=== PATIENT | female | born 1935 | race Two or more races ===

== ENCOUNTER 2025-01-07 17:11 | Emergency (ER) | payer OTHER ==
[~2025-01-07] VITALS: Ht 144.8 cm; Wt 63.5 kg
[2025-01-07 19:57] LABS: BASO % 0.6 % (0.1-1.2); EOS # 0.03 (0.04-0.54); EOS % 0.3 % (0.7-7.0); LYMPH # 2.46 (1.18-3.74); LYMPH % 25.6 % (19.3-53.1); MEAN PLATELET VOLUME 9.60 fl (9.4-12.4); MONO # 0.75 (0.24-0.82); MONO % 7.8 % (4.7-12.5); NEUT # 6.27 (1.56-6.13); NEUT % 65.2 % (34.0-71.1); RED CELL DISTRIBUTION WIDTH 15.4 % (11.6-14.4)
[2025-01-07 21:02] LABS: ALT/SGPT 38.0 U/L (12-78); AST/SGOT 90.0 U/L (15-37); BILIRUBIN TOTAL 0.57 mg/dL (0.3-1.2); BUN CREA RATIO 17.0 (7.0-25.0); CREATININE SERUM 1.99 mg/dL (0.55-1.02); GFR 23.6; GLOBULINA 5.0 G/DL (2.4-3.5); GLUCOSE FASTING 106.0 mg/dL (65-100); OSMOLALITY SERUM 289.0 MOSM/KG (275-295)
[2025-01-07 21:12] LABS: TSH 8.79 uIU/mL (0.358-3.74)
== END 2025-01-07 23:30 | disposition home or self-care (01) ==
LOC: ER 17:11
DX: R45.0 Nervousness (principal); I10 Essential (primary) hypertension; F03.90 Unspecified dementia, unspecified severity, without behavioral disturbance, psychotic disturbance, mood disturbance, and anxiety

== ENCOUNTER 2025-01-19 15:52 | Inpatient (IN) | payer OTHER ==
[~2025-01-19] VITALS: Ht 144.8 cm; Wt 73.9 kg
[2025-01-19] MEDS ORDERED: SYNTHROID75 MCG PO (16:13)
--- NOTE | 2025-01-19 16:13 | NUR ---
PACIENTE REFIERE ARDOR AL ORINAR Y CON MAL OLOR. PACIENTE CON RESULTADO DE CULTIVO DE ORINA. REFERIDO POR POLO ONCOLOGO (ROBERTO ZAMORA)
[2025-01-19] MEDS ORDERED: 0.9 % SODIUM CHLORIDE 1,000 ML IV ONE (17:00)
[2025-01-19] MEDS ORDERED: levoFLOXacin IN DEXTROSE 5 % 500MG/100ML PIGGYBAG IV ONE ×2 (17:00→18:19)
--- NOTE | 2025-01-19 18:04 | NUR ---
RN LLAMAS ORIENTA A PTE SOBRE TX MEDICO Y LA MISMA REFIERE ENTENDER Y ACEPTAR. RN CANALIZA Y COLECTA MUESTRAS DE LAB, ADMINISTRA MED GIULIA ORDEN MEDICA. PEND XRAY A REALIZAR
[2025-01-19 18:25] LABS: BASO % 0.3 % (0.1-1.2); EOS # 0.02 (0.04-0.54); EOS % 0.1 % (0.7-7.0); LYMPH # 2.13 (1.18-3.74); LYMPH % 13.9 % (19.3-53.1); MEAN PLATELET VOLUME 9.00 fl (9.4-12.4); MONO # 1.63 (0.24-0.82); MONO % 10.6 % (4.7-12.5); NEUT # 11.39 (1.56-6.13); NEUT % 74.4 % (34.0-71.1); RED CELL DISTRIBUTION WIDTH 15.3 % (11.6-14.4)
[2025-01-19 18:50] LABS: ALT/SGPT 26.0 U/L (12-78); AST/SGOT 131.0 U/L (15-37); BILIRUBIN TOTAL 1.11 mg/dL (0.3-1.2); BUN CREA RATIO 19.0 (7.0-25.0); CREATININE SERUM 1.44 mg/dL (0.55-1.02); GFR 34.27; GLOBULINA 4.5 G/DL (2.4-3.5); GLUCOSE FASTING 120.0 mg/dL (65-100); OSMOLALITY SERUM 278.0 MOSM/KG (275-295)
[2025-01-19 20:41] LABS: URINE APPEARANCE Clear; URINE BILIRRUBIN Negative (NEGATIVE); URINE BLOOD Negative; URINE COLOR Dark Yellow; URINE GLUCOSE Negative (NEGATIVE); URINE KETONE Trace (NEGATIVE); URINE LEUKOCYTE Small; URINE NITRATE Positive; URINE UROBILINOGEN 1.0 E.U./dl
[2025-01-19 20:45] LABS: URINE BACTERIA 3567.5 uL (0.0-1933); URINE CAST 6.59 uL (0.0-1.40); URINE EPITHELIAL CELLS 10.4 uL (0.0-38.8); URINE RBC 7.4 uL (0.0-20.8); URINE WBC 81.8 uL (0.0-23.2)
[2025-01-19 21:02] LABS: URINE PROTEIN 100 (NEGATIVE)
[2025-01-19] MEDS ORDERED: LISINOPRIL 5 MG TABLET PO SCH (22:40)
[2025-01-19] MEDS ORDERED: DONEPEZIL HCL 5 MG TABLET PO SCH (22:40)
[2025-01-19] MEDS ORDERED: ENOXAPARIN SODIUM 40 MG/0.4 ML SYRINGE SUBCUTANEO SCH (22:55)
[2025-01-19] MEDS ORDERED: levoFLOXacin IN DEXTROSE 5 % 150 ML IV SCH (23:00)
[2025-01-19] MEDS ORDERED: ACETAMINOPHEN 325 MG TABLET PO PRN (23:00)
[2025-01-19] MEDS ORDERED: 0.9 % SODIUM CHLORIDE 1,000 ML IV SCH (23:00)
[2025-01-19 23:52] VITALS: BP 130/80
[2025-01-19] MEDS ORDERED: ENOXAPARIN SODIUM 40 MG/0.4 ML SYRINGE SUBCUTANEO ONE (23:53)
[2025-01-20 04:31] LABS: BASO % 0.2 % (0.1-1.2); EOS # 0.00 (0.04-0.54); EOS % 0.0 % (0.7-7.0); LYMPH # 1.65 (1.18-3.74); LYMPH % 10.6 % (19.3-53.1); MEAN PLATELET VOLUME 9.50 fl (9.4-12.4); MONO # 1.20 (0.24-0.82); MONO % 7.7 % (4.7-12.5); NEUT # 12.59 (1.56-6.13); NEUT % 81.1 % (34.0-71.1); RED CELL DISTRIBUTION WIDTH 14.8 % (11.6-14.4)
[2025-01-20 04:51] LABS: INR 1.46
[2025-01-20] MEDS ORDERED: LEVOTHYROXINE SODIUM 75 MCG TABLET PO SCH (06:00)
[2025-01-20 06:03] LABS: ALT/SGPT 27.0 U/L (12-78); AST/SGOT 138.0 U/L (15-37); BILIRUBIN TOTAL 1.65 mg/dL (0.3-1.2); BUN CREA RATIO 22.0 (7.0-25.0); CREATININE SERUM 1.03 mg/dL (0.55-1.02); GFR 50.45; GLOBULINA 4.2 G/DL (2.4-3.5); GLUCOSE FASTING 66.0 mg/dL (65-100); OSMOLALITY SERUM 274.0 MOSM/KG (275-295)
[2025-01-20 06:13] VITALS: BP 114/71; O2SAT 98
[2025-01-20 09:57] VITALS: BP 126/77; O2SAT 98
[2025-01-20] MEDS ORDERED: AMINO ACIDS/PROTEIN HYDROLYS 30 ML BLIST.PACK PO SCH (17:00)
[2025-01-20] MEDS ORDERED: VITAMIN B COMPLEX/LYSINE 15 ML BLIST.PACK PO SCH (17:00)
[2025-01-20] MEDS ORDERED: LACTOBACILLUS ACIDOPHILUS 1 CAP CAP PO SCH (17:00)
[2025-01-20 18:15] VITALS: BP 115/73
[2025-01-21 02:04] VITALS: BP 103/63; O2SAT 97
[2025-01-21 09:34] VITALS: BP 126/71
[2025-01-21 18:10] VITALS: BP 126/73; O2SAT 98
[2025-01-22 01:54] VITALS: BP 115/67; O2SAT 97
[2025-01-22 08:00] VITALS: BP 117/74
[2025-01-22 18:36] VITALS: BP 131/75; O2SAT 97
[2025-01-23 02:01] VITALS: BP 138/76; O2SAT 98
[2025-01-23 08:00] VITALS: BP 137/83
[2025-01-23 15:12] LABS: BASO % 0.4 % (0.1-1.2); EOS # 0.03 (0.04-0.54); EOS % 0.3 % (0.7-7.0); LYMPH # 1.86 (1.18-3.74); LYMPH % 18.1 % (19.3-53.1); MEAN PLATELET VOLUME 9.80 fl (9.4-12.4); MONO # 1.02 (0.24-0.82); MONO % 9.9 % (4.7-12.5); NEUT # 7.25 (1.56-6.13); NEUT % 70.7 % (34.0-71.1); RED CELL DISTRIBUTION WIDTH 14.7 % (11.6-14.4)
[2025-01-23 18:42] VITALS: BP 139/87
[2025-01-23 23:14] LABS: URINE APPEARANCE Clear; URINE BILIRRUBIN Negative (NEGATIVE); URINE BLOOD Negative; URINE COLOR Yellow; URINE GLUCOSE Negative (NEGATIVE); URINE KETONE Trace (NEGATIVE); URINE LEUKOCYTE Negative; URINE NITRATE Negative; URINE PROTEIN Trace (NEGATIVE); URINE UROBILINOGEN 1.0 E.U./dl
[2025-01-23 23:18] LABS: URINE BACTERIA 9.5 uL (0.0-1933); URINE EPITHELIAL CELLS 2.4 uL (0.0-38.8); URINE RBC 3.0 uL (0.0-20.8)
[2025-01-23 23:22] LABS: URINE CAST 0.00 uL (0.0-1.40); URINE WBC 1.5 uL (0.0-23.2)
[2025-01-24 02:03] VITALS: BP 132/84; O2SAT 97
[2025-01-24 08:17] VITALS: BP 133/77; O2SAT 96
[2025-01-24 16:07] VITALS: BP 125/73; O2SAT 95
[2025-01-25 02:57] VITALS: BP 143/88; O2SAT 95
[2025-01-25] MEDS ORDERED: ENOXAPARIN SODIUM 30 MG/0.3 ML SYRINGE SUBCUTANEO SCH (09:00)
[2025-01-25] MEDS ORDERED: LISINOPRIL 5 MG TABLET PO SCH (09:00)
[2025-01-25 09:30] VITALS: BP 134/72
[2025-01-25] MEDS ORDERED: CARVEDILOL 3.125 MG TABLET PO SCH (12:03)
[2025-01-25 18:47] VITALS: BP 145/84; O2SAT 97
[2025-01-26 03:17] VITALS: BP 140/79; O2SAT 97
[2025-01-26 08:31] VITALS: BP 119/76
[2025-01-26 18:18] VITALS: BP 137/82
== END 2025-01-26 18:35 | disposition home or self-care (01) | DRG 690 ==
LOC: ER 17:19 → MEDJ 22:34
PROVIDERS: General Practice; Internal Medicine Infectious Disease; ADMIT Internal Medicine; ATTEND Internal Medicine
PROC: 4A12X4Z Monitoring of Cardiac Electrical Activity, External Approach (ICD-10-PCS; principal; 2025-01-20)
DX: N39.0 Urinary tract infection, site not specified (principal); N17.8 Other acute kidney failure; C18.9 Malignant neoplasm of colon, unspecified; C78.02 Secondary malignant neoplasm of left lung; C78.01 Secondary malignant neoplasm of right lung; C78.7 Secondary malignant neoplasm of liver and intrahepatic bile duct; E03.9 Hypothyroidism, unspecified; I10 Essential (primary) hypertension; G30.8 Other Alzheimer's disease; F02.80 Dementia in other diseases classified elsewhere, unspecified severity, without behavioral disturbance, psychotic disturbance, mood disturbance, and anxiety; R45.0 Nervousness